=== PATIENT | male | born 1980 | race Caucasian/White ===

== ENCOUNTER 2017-06-29 11:19 | Outpatient (CLI) | payer OTHER ==
[2017-06-29 12:12] LABS: #Basophils 0.1 thou/uL (0.0-0.2); #Eosinphils 0.2 thou/uL (0.0-0.7); #Lymphocytes 1.9 thou/uL (1.20-3.40); #Monocytes 0.4 thou/uL (0.11-0.59); %Basophils 1.7 % (0.0-1.0); %Lymphocytes 28.8 % (21.0-51.0); %Monocytes 6.6 % (0.0-10.0); Hematocrit 48.9 % (42.0-52.0); Red Blood Cell (RBC) Count 5.09 mill/uL (4.70-6.10); White Blood Cell (WBC) Count 6.6 thou/uL (4.8-10.8)
[2017-06-29 12:32] LABS: Anion Gap 10 mmol/L (10-20); BUN (Urea Nitrogen) 16 mg/dL (8.9-20.6); Calc. Creatinine Clearance 0 mL/min (70-130); Calcium 9.8 mg/dL (7.8-10.44); Carbon Dioxide 31 mmol/L (22-29); Chloride 102 mmol/L (98-107); Estimated GFR-MDRD 77
== END 2017-06-29 11:20 | disposition home or self-care (01) ==
LOC: LABBT 11:19
PROVIDERS: ATTEND Orthopaedic Surgery
DX: Z01.812 Encounter for preprocedural laboratory examination (principal); M25.311 Other instability, right shoulder
CPT/HCPCS: 80048; 85025

== ENCOUNTER 2017-07-07 06:15 | Day surgery (SDC) | payer OTHER ==
[2017-06-29 11:52] VITALS: BMI 31.1
[2017-07-07] MEDS ORDERED: Midazolam HCl 2 mg/2 ml Vial ONE (06:25)
[2017-07-07] MEDS ORDERED: Fentanyl 100 MCG/2 ML VIAL ONE ×2 (06:25→09:31)
[2017-07-07] MEDS ORDERED: Ropivacaine 0.2% HCl/PF 20 ML ONE (06:26)
[2017-07-07] MEDS ORDERED: Lidocaine 1% (PF) 30 ML VIAL ONE (06:26)
[2017-07-07] MEDS ORDERED: CEFAZOLIN/Water 2 GM/20 ML SYRINGE ONE (06:35)
[2017-07-07] MEDS ORDERED: Fentanyl 100 MCG/2 ML VIAL IV PRN (06:41)
[2017-07-07] MEDS ORDERED: HYDROcodone/Acetaminophen 5/325 mg Tablet PO PRN ×2 (06:41)
[2017-07-07] MEDS ORDERED: traMADol HCl 50 MG TAB PO PRN ×2 (06:41)
[2017-07-07] MEDS ORDERED: Ropivacaine 0.2% 550 ML 550 ML NERVE BLCK SCH (06:41)
[2017-07-07] MEDS ORDERED: Ketorolac Tromethamine 30 MG/ML VIAL IVP PRN (06:41)
[2017-07-07] MEDS ORDERED: Ondansetron HCl/PF 4 MG/2 ML Vial IVP PRN (06:41)
[2017-07-07] MEDS ORDERED: Zolpidem Tartrate 5 MG TAB PO PRN (06:41)
[2017-07-07] MEDS ORDERED: Promethazine HCl 25 MG/ML VIAL IM PRN (06:41)
[2017-07-07] MEDS ORDERED: Phenylephrine 10 MG/NS 250 ML 250 ML ONE (07:58)
--- NOTE | 2017-07-07 09:19 | OP ---
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 SURGEON: Vj Herman M.D. COOKING INSTRUCTOR: Vic Reyes PA-C. BLOOD LOSS: Less than 100. SPECIMEN: None. DRAINS: None. COMPLICATIONS: None. TITLE OF PROCEDURE: Open Bankart repair. DESCRIPTION OF PROCEDURE: The patient was taken to the operating where general anesthesia was induce d. He was placed in a beachchair position. Right arm was prepped and draped in the usual sterile fa shion in a deltopectoral approach. Subscapularis was peeled off the capsule. The capsule was preser nathalie for later closure. I exposed the capsule all the way down to the glenoid on both sides. He had a large Bankart lesion that was easily identified. I freshened up the anterior glenoid. I placed th [facility] suture anchors. These were 3 mm Arthrex suture anchors through the anterior glenoid, passed hori zontal mattress sutures of #6 sutures were passed through the capsule and tied outside the capsule co mpletely closing the Bankart lesion. Irrigation was performed. The capsule was repaired. I anatomi moon set his arm and externally rotated about 10 degrees. This was done with five #1 Ethibond sutur es. The subscapularis was repaired with #1 Ethibond suture and reinforced with #2 Vicryl and irrigat ion was performed. The rotator was moved closely with #1 Ethibond. The subcutaneous tissue closed w ith 2-0 Vicryl, the skin was closed with franky. Sterile dressings applied. There were no complica tions.
[2017-07-07] MEDS ORDERED: HYDROcodone/Acetaminophen 5/325 mg Tablet ONE (11:07)
[2017-07-07] MEDS ORDERED: Propofol 200 MG/20 ML VIAL ONE (15:45)
[2017-07-07] MEDS ORDERED: Ondansetron HCl/PF 4 MG/2 ML Vial ONE (15:45)
[2017-07-07] MEDS ORDERED: Glycopyrrolate 0.2 MG/ML 5 ML SYRINGE ONE (15:45)
[2017-07-07] MEDS ORDERED: PHENYLEPHRINE-NS 100 MCG/ML 10 ML SYRINGE ONE (15:45)
== END 2017-07-07 11:25 | disposition home or self-care (01) ==
LOC: SDC 06:15
PROVIDERS: ATTEND Orthopaedic Surgery
PROC: 0RQJ0ZZ Repair Right Shoulder Joint, Open Approach (ICD-10-PCS; principal; 2017-07-07)
DX: M25.311 Other instability, right shoulder (principal); F17.210 Nicotine dependence, cigarettes, uncomplicated; Z90.89 Acquired absence of other organs
CPT/HCPCS: 96374; A4306; C1713; J2001; J2250; J2405; J2704; J2795; J3010

== ENCOUNTER 2017-07-08 01:00 | Observation (INO) | payer OTHER ==
[2017-07-08] MEDS ORDERED: HYDROmorphone 0.5 MG/0.5 ML SYRINGE ONE (03:27)
[2017-07-08] MEDS ORDERED: Ondansetron HCl/PF 4 MG/2 ML Vial ONE (03:27)
[2017-07-08] MEDS ORDERED: Ondansetron ODT 4 MG TAB SL PRN (05:03)
[2017-07-08] MEDS ORDERED: Sodium Chloride 0.9% 1,000 ML IV SCH (05:03)
[2017-07-08] MEDS ORDERED: Ondansetron HCl/PF 4 MG/2 ML Vial IVP PRN (05:03)
[2017-07-08] MEDS ORDERED: Morphine 4 MG/ML VIAL IV PRN (05:04)
[2017-07-08 05:05] VITALS: BMI 31.1
[2017-07-08] MEDS: Morphine 4 MG/ML VIAL IV PRN ×2 (05:25→09:01)
[2017-07-08 08:14] VITALS: BP 108/70; TEMP 98
[2017-07-08] MEDS ORDERED: Midazolam HCl 2 mg/2 ml Vial ONE (10:17)
[2017-07-08] MEDS ORDERED: Fentanyl 100 MCG/2 ML VIAL ONE (10:17)
[2017-07-08] MEDS ORDERED: Sodium Chloride For Inhalation 0.9% 3 ML NEB ONE (10:20)
[2017-07-08] MEDS ORDERED: Sodium Chloride 0.9% 10 ML ONE (10:20)
[2017-07-08] MEDS ORDERED: Ropivacaine 0.5% HCl/PF (150 MG/30 ML VIAL) ONE (14:58)
[2017-07-08] MEDS ORDERED: Ropivacaine 0.2% HCl/PF (40 MG/20 ML VIAL) ONE (14:58)
--- NOTE | 2017-07-11 10:08 | DIS ---
DATE OF ADMISSION: 07/08/2017 DATE OF DISCHARGE: 07/08/2017 HOSPITAL COURSE: The patient was admitted for pain control secondary to intractable right shoulder p ain. His block unfortunately from the day before came out, he had a Bankart procedure by Dr. Herman. Hospital stay was unremarkable. He was treated by Anesthesia who replaced the block and then patient was discharged home. Follow up as stated in previous discharge for Dr. Herman. Jaiden Lombardo PA-C dictating for Dr.Christopher Persaud.
== END 2017-07-08 11:54 | disposition home or self-care (01) ==
LOC: ERS 01:00 → SURG A 04:55
PROVIDERS: ADMIT Orthopaedic Surgery; ATTEND Orthopaedic Surgery
DX: M25.311 Other instability, right shoulder (principal); Z98.890 Other specified postprocedural states; Z87.891 Personal history of nicotine dependence
CPT/HCPCS: 96361; 96372; 96374; 96375; 96376; A4216; G0378; J1170; J2250; J2270; J2405; J2795; J3010

== ENCOUNTER 2020-01-18 10:28 | Emergency (ER) | payer OTHER ==
[2020-01-18] MEDS ORDERED: Lidocaine 1% PF 5 ML VIAL ONE (11:13)
[2020-01-18] MEDS ORDERED: cefTRIAXone\\ROCEPHIN 250 MG VIAL ONE (11:13)
[2020-01-18] MEDS ORDERED: Azithromycin 250 MG TAB ONE (11:13)
[2020-01-18 11:22] LABS: Bacteria/HPF None Seen HPF (None Seen); Bilirubin Negative (Negative); Blood, Urine 1+ (Negative); Clarity Clear (Clear); Glucose, Urine (Dipstick) 100 mg/dL (Negative); Leukocyte 75 Leu/uL (Negative); Mucous/LPF Rare LPF (<2+); Nitrite Negative (Negative); Protein, Urine (Dipstick) 20 mg/dL (Neg-Trace); Squamous Epithelial None Seen HPF (0-3); Urobilinogen 6 mg/dL (Less than 2)
[2020-01-20 15:02] LABS: SARS-CoV-2 MS2 Positive; SARS-CoV-2 N Gene Negative; SARS-CoV-2 S Gene Negative; SARS-CoV-2 orf1ab Negative
[2020-01-21 21:26] LABS: Chlam.trachomatis by PCR,Urine Not Detected (NotDetected)
== END 2020-01-18 11:58 | disposition home or self-care (01) ==
LOC: ERS 10:28
DX: A64 Unspecified sexually transmitted disease (principal); F17.210 Nicotine dependence, cigarettes, uncomplicated; Z20.828 Contact with and (suspected) exposure to other viral communicable diseases
CPT/HCPCS: 81003; 81015; 87491; 87591; 87635; 96372; 99283; J0696; J2001; U0003

== ENCOUNTER 2021-03-30 00:43 | Emergency (ER) | payer OTHER, SELFPAY ==
[2021-03-30] MEDS ORDERED: Lorazepam 2 MG/ML VIAL ONE (01:05)
[2021-03-30 01:25] LABS: #Basophils 0.1 thou/uL (0.0-0.2); #Eosinphils 0.2 thou/uL (0.0-0.7); #Lymphocytes 1.2 thou/uL (1.20-3.40); #Monocytes 0.4 thou/uL (0.11-0.59); #Neutrophils 5.6 thou/uL (1.40-6.50); %Basophils 1.1 % (0.0-1.0); %Eosinophils 2.9 % (0.0-10.0); %Monocytes 5.7 % (0.0-10.0); %Neutrophils 74.4 % (42.0-75.0); Mean Corpuscular HGB CONC 35.7 g/dL (32.0-36.0); Mean Corpuscular Hemoglobin 34.1 pg (27.0-31.0); Mean Corpuscular Volume 95.5 fL (78.0-98.0); Mean Platelet Volume 7.8 fL (7.4-10.4); Platelet Count 207 thou/uL (130-400); RBC Distribution Width 11.6 % (11.5-14.5); Red Blood Cell (RBC) Count 4.41 mill/uL (4.70-6.10); White Blood Cell (WBC) Count 7.6 thou/uL (4.8-10.8)
[2021-03-30 01:49] LABS: Acetaminophen Less than 6.0 mcg/mL (10.0-30.0); Alcohol Less than 10 mg/dL (Less than 10); Lipase 25 U/L (8-78); Salicylate Less than 8.0 mg/dL (15.0-30.0)
[2021-03-30 01:50] LABS: ALT (SGPT) 73 U/L (8-55); AST (SGOT) 43 U/L (5-34); Albumin 3.6 g/dL (3.5-5.0); Alkaline Phosphatase 61 U/L (40-110); Anion Gap 7 mmol/L (10-20); BUN (Urea Nitrogen) 13 mg/dL (8.9-20.6); Bilirubin, Total 0.7 mg/dL (0.2-1.2); Calc. Creatinine Clearance 0 mL/min (70-130); Carbon Dioxide 28 mmol/L (22-29); Chloride 106 mmol/L (98-107); Glucose 116 mg/dL (70-105); Potassium 3.7 mmol/L (3.5-5.1); Protein, Total 6.6 g/dL (6.0-8.3); Sodium 137 mmol/L (136-145)
== END 2021-03-30 07:12 | disposition home or self-care (01) ==
LOC: ERS 00:43
DX: F10.10 Alcohol abuse, uncomplicated (principal); F19.10 Other psychoactive substance abuse, uncomplicated; R79.89 Other specified abnormal findings of blood chemistry; Y90.0 Blood alcohol level of less than 20 mg/100 ml; F17.210 Nicotine dependence, cigarettes, uncomplicated
CPT/HCPCS: 36415; 51701; 80053; 80307; 83690; 84484; 85025; 93005; 96374; J2060